=== PATIENT | female | born 2000 | race Caucasian/White ===

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

== ENCOUNTER → 2020-04-11 | Outpatient (CLI) | payer OTHER ==
[2020-04-11 08:53] VITALS: BP 113/60; PULSE 72; RESP 16; TEMP 97.9
--- NOTE | 2020-04-11 11:18 | P.HPOB ---
History of Present Illness H&P Date: 04/11/20 Chief Complaint: Pelvic pain for 2 months. This is a 20-year-old with an LMP of 03/30/2020. The patient is here to establish with this office. She currently is not using anything for control and is interested in getting . Her menses are regular every month. She states she started having some pelvic pains about 2 months ago. She rates the pain at 4-6 out of 10. She states at times it is not very bothersome but it seems to always be there. The pain tends to be a sore ache that can become sharp with sex or when she is working out. She states it is not related to her menstrual periods. She notices it on both sides and is not greater on either side. She denies vaginal discharge, urinary symptoms, fever or GI problems. Review of Systems The patient's weight has been stable over the last year. She denies respi ratory, cardiac, or G.I. problems. See HPI. Past Medical History Additional Past Medical History / Comment(s): Heart murmur(followed by Dr. Hawkins). 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 History of Any Multi-Drug Resistant Organisms: None Reported Past Surgical History: No Surgical Hx Reported Past Psychological History: Depression Smoking Status: Never smoker Past Alcohol Use History: None Reported Past Drug Use History: None Reported Additional History: The patient is single and has been with her boyfriend since 2018. The live together. This has been her only sexual partner. 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 - Past Family History Mother Family Medical History: No Reported History Father Family Medical History: No Reported History Medications and Allergies Home Medications Medication Instructions Recorded Confirmed Type Sertraline HCl [Zoloft] 100 mg PO HS 05/19/19 04/11/20 History Allergies Allergy/AdvReac Type Severity Reaction Status Date / Time No Known Allergies Allergy Verified 04/11/20 08:47 Exam Vital Signs Temp Pulse Resp BP Pulse Ox 04/11/20 08:50 97.9 F 72 16 113/60 99 Intake and Output 04/10/20 04/11/20 04/11/20 22:59 06:59 14:59 Other: Weight 66.678 kg Height 5 feet 2 inches, weight 147 pounds, BMI 26.9. This is a well-developed well-nourished white female who is alert and oriented times 3 in no acute distress. HEENT: Within normal limits. NECK: Supple without mass or thyromegaly. CHEST AND LUNGS: Clear to auscultation. HEART: Regular rate and rhythm. There is a grade 3/6 jesus-systolic murmur. BREASTS: Are without mass or discharge. AXILLARY EXAM: Negative for adenopathy. BACK: Negative for CVA tenderness. ABDOMEN: Softwithout palpable masses. There is mild bilateral low abdominal tenderness without rebound tenderness. PELVIC EXAM: Normal external genitalia. Cervix and vagina appear normal. There is no unusual discharge. There is mild cervical motion tenderness. There is no evidence of prolapse. The uterus is midposition, nongravid size and is mildly tender. There are no palpable adnexal masses. There is mild bilateral adnexal tenderness. RECTAL EXAM: Deferred. EXTREMITIES: Nontender. IMPRESSION: 1. 20-year-old female with a 2 month history of low abdominal and pelvic pain. Differential diagnosis will include mild pelvic inflammatory disease, ruptured ovarian cyst and less likely, non-gynecologic pain such as UTI or GI pain. 2. Currently not preventing and would like to become . PLAN: 1. Pap smear was deferred until age 21. 2. Self breast awareness was discussed with the patient. 3. Since I feel that this may represent a mild type of PID, she will be treated for PID as an outpatient. Ceftriaxone 250 mg's IM will be given today. Doxycycline 100 mg by mouth twice a day 14 days. 4. GC and chlamydia testing were obtained from the cervix. 5. Urine was obtained for urinalysis and culture with sensitivity. Urine hCG will also be done. 6. Pelvic ultrasound has been scheduled. 7. The patient was instructed to call or go to the emergency room if she is having worsening of pain, high fever or problems. 8. I have recommended that she take a daily multivitamin if she is not preventing since this may help to decrease the risk for certain defects. 9. She will return in one week for recheck.
[2020-04-11 15:19] LABS: Appearance,Urine Cloudy (Clear); Bacteria,Urine Rare /hpf; Bilirubin,Urine Negative (Negative); Blood,Urine Negative (Negative); Color,Urine Yellow; Glucose,Urine (UA) Negative (Negative); Ketones,Urine Negative (Negative); Leukocyte Esterase,Urine Negative (Negative); Mucus,Urine Many /hpf; Nitrite,Urine Negative (Negative); PH, Urine 5.5 (5.0-8.0); Protein,Urine Trace (Negative); RBC,Urine <1 /hpf (0-5); Specific Gravity,Urine 1.034 (1.001-1.035); Squamous Epithelial Cell,Urine 9 /hpf (0-4); Urobilinogen,Urine <2.0 mg/dL (<2.0); WBC,Urine 2 /hpf (0-5)
[2020-04-12 13:09] LABS: C. trachomatis,PCR Negative (Neg,Equiv); Chlamydia trachomatis Source Cervix; N. gonorrhoeae,PCR Negative (Neg,Equiv); Neisseria Source Cervix
--- NOTE | 2020-04-13 09:20 | P.PN ---
Progress Note - Text Progress Note Date: 04/13/20 OUTPATIENT FOLLOW-UP NOTE TEST(S)/RESULTS: Test results from 04/11/2020 include negative GC and negative chlamydia. Urinalysis and culture did not show infection. METHOD OF NOTIFICATION: A message with these results was left on the patient's voicemail. PATIENT COMMENTS: DIAGNOSIS: Suspected mild PID. Negative GC and chlamydia testing and no evidence of urinary tract infection. DISCUSSION: PLAN: The patient is scheduled for a pelvic ultrasound on 04/16/2020 and follow- up appointment with me on 04/18/2020. A message was also left to call if she is having any problems or if questions.
== END | disposition home or self-care (01) ==
LOC: WWCWWP 08:41
PROVIDERS: ATTEND Obstetrics & Gynecology
DX: N73.9 Female pelvic inflammatory disease, unspecified (principal); R10.2 Pelvic and perineal pain; Z11.3 Encounter for screening for infections with a predominantly sexual mode of transmission
CPT/HCPCS: 81001; 81025; 87086; 87491; 87591

== ENCOUNTER → 2020-04-11 | Outpatient (CLI) | payer OTHER ==
[~2020-04-11] MED LIST: cefTRIAXone 250 MG VIAL IM ONE
[2020-04-11 11:00] VITALS: BP 110/67; PULSE 67; RESP 16; TEMP 97.9
== END | disposition home or self-care (01) ==
LOC: PROCWHC3 10:32
PROVIDERS: ATTEND Obstetrics & Gynecology
DX: R10.2 Pelvic and perineal pain (principal)
CPT/HCPCS: 96372; J0696

== ENCOUNTER → 2020-04-16 | Outpatient (CLI) | payer OTHER ==
--- NOTE | 2020-04-16 08:51 | US ---
EXAMINATION TYPE: US pelvic complete DATE OF EXAM: 04/16/2020 COMPARISON: NONE CLINICAL HISTORY: 20-year-old female R10.2 Pelvic Pain. TECHNIQUE: Transabdominal (TA). FINDINGS: EXAM MEASUREMENTS: Uterus: 7.8 x 3.3 x 4.6 cm Endometrial Stripe: .7 cm Right Ovary: 3.6 x 1.9 x 2.3 cm Left Ovary: 3.3 x 1.3 x 2.2 cm 1. Uterus: Anteverted wnl 2. Endometrium: wnl 3. Right Ovary: wnl 4. Left Ovary: wnl 5. Bilateral Adnexa: wnl 6. Posterior cul-de-sac: wnl IMPRESSION: Unremarkable transabdominal sonographic examination of the pelvis.
== END | disposition home or self-care (01) ==
LOC: RADUSWWP 08:25
PROVIDERS: ATTEND Obstetrics & Gynecology
DX: R10.2 Pelvic and perineal pain (principal)
CPT/HCPCS: 76856

== ENCOUNTER → 2020-04-18 | Outpatient (CLI) | payer OTHER ==
[2020-04-18 09:06] VITALS: BP 103/72; PULSE 69; RESP 16; TEMP 98.6
--- NOTE | 2020-04-18 09:39 | P.PN ---
Progress Note - Text Progress Note Date: 04/18/20 Chief Complaint: Follow-up for suspected mild PID. HPI: This is a 20 year old . On 04/11/2028, the patient presented with some low abdominal and pelvic pain which was bilateral. On examination she had cervical motion tenderness with bilateral adnexal tenderness. The patient was treated for suspected mild PID with ceftriaxone and doxycycline. GC and chlamydia testing ended up being negative. Urine hCG was negative and urine did not show infection. The pain has gotten slightly better, but has not gone away completely. She now has slight pain on the left side only. Pelvic ultrasound done on 04/16/2020 was unremarkable. ROS: She denies fever, respiratory, cardiac, or GI problems. Bowel movements are regular and normal. PE: Blood pressure: 103/72, Height: 5 foot 1 inch, Weight: 149 pounds, Temperature: 98.6, Pulse: 69. 98% pulse oximeter. This is a well developed, well nourished, white female who is alert and orientedx3, in no acute distress. Abdomen: Soft, with minimal left lower quadrant tenderness without rebound tenderness. The rest of the abdomen is nontender. The abdomen is nondistended. There are no palpable masses. Pelvic exam: Normal external genitalia. There is no cervical motion tenderness. Uterus is midposition and nongravid size and nontender. There is no right adnexal tenderness or mass. There is mild left adnexal tenderness without palpable mass. Impression: 1. 20-year-old female who was treated for suspected mild PID 1 week ago with improvement of pain but not complete resolution. Differential diagnosis will include resolving ruptured ovarian cyst, improving pelvic inflammatory disease, and non-gynecologic pain. 2. The patient is not interested in control and is interested in attempting in the near future. Plan: 1. No further treatment at this time. The patient will continue to abstain from any sexual intercourse until the pain has resolved. The patient was instructed to call if pain is resolved over the next 1-2 weeks or if worsening of pain. She was also instructed to call if fever or problems. If pain is not improving or worsening, consider referral for laparoscopic examination. 2. She has started a daily multivitamin. She'll keep a menstrual calendar. She will call if or problems. 3. She was advised to return in one year for her annual well woman exam and as needed. Time spent with the patient: 15 minutes
== END | disposition home or self-care (01) ==
LOC: WWCWWP 08:55
PROVIDERS: ATTEND Obstetrics & Gynecology
DX: Z53.9 Procedure and treatment not carried out, unspecified reason (principal)

== ENCOUNTER → 2020-06-25 | Outpatient (CLI) | payer OTHER | END | disposition home or self-care (01) | LOC: LABWHC1 14:17 | PROVIDERS: ATTEND Emergency Medicine | DX: Z20.828 Contact with and (suspected) exposure to other viral communicable diseases (principal) | CPT/HCPCS: U0003; C9803 ==

== ENCOUNTER 2023-07-20 12:11 | Emergency (ER) | payer OTHER ==
--- NOTE | 2023-07-20 13:08 | ED ---
Female Urogenital HPI - General Chief complaint: Vaginal Bleeding Stated complaint: Vaginal bleeding, 5 wks Time Seen by Provider: 07/20/23 12:19 Source: patient, RN notes reviewed Mode of arrival: ambulatory Limitations: no limitations - History of Present Illness Initial comments: 23-year-old female presents emergency department to complaint of abdominal pain, vaginal bleeding and . Patient states that she is A1 currently 6 weeks . Patient confirmed last week but positive test but ultrasound NEGATIVE FOR ANY FINDINGS. PATIENT STATES SHE STARTED HAVING PAIN, CRAMPING BUT ALSO DEVELOPED BLEEDING TODAY. Patient is 80 positive blood type patient denies any fevers or chills no dysuria no other complaints. - Related Data Home Medications Medication Instructions Recorded Confirmed Sertraline HCl [Zoloft] 100 mg PO HS 05/19/19 04/18/20 Previous Rx's Medication Instructions Recorded Doxycycline [Vibramycin] 100 mg PO BID 14 Days #28 capsule 04/11/20 Allergies Allergy/AdvReac Type Severity Reaction Status Date / Time No Known Allergies Allergy Verified 07/20/23 12:14 Review of Systems ROS Statement: Those systems with pertinent positive or pertinent negative responses have been documented in the HPI. ROS Other: All systems not noted in ROS Statement are negative. Past Medical History Past Medical History: No Reported History History of Any Multi-Drug Resistant Organisms: None Reported Past Surgical History: No Surgical Hx Reported Past Psychological History: Depression Smoking Status: Never smoker Past Alcohol Use History: None Reported Past Drug Use History: None Reported General Exam Limitations: no limitations General appearance: alert, in no apparent distress Head exam: Present: atraumatic, normocephalic, normal inspection Eye exam: Present: normal appearance, PERRL, EOMI. Absent: scleral icterus, conjunctival injection, periorbital swelling Respiratory exam: Present: normal lung sounds bilaterally. Absent: respiratory distress, wheezes, rales, rhonchi, stridor Cardiovascular Exam: Present: regular rate, normal rhythm, normal heart sounds. Absent: systolic murmur, diastolic murmur, rubs, gallop, clicks GI/Abdominal exam: Present: soft, tenderness, normal bowel sounds. Absent: distended, guarding, rebound, rigid Back exam: Absent: CVA tenderness (R), CVA tenderness (L) Course Vital Signs 07/20/23 12:12 Temperature 98.3 F Pulse Rate 76 Respiratory 16 Rate Blood Pressure 156/78 O2 Sat by Pulse 100 Oximetry Medical Decision Making - Medical Decision Making Was pt. sent in by a medical professional or institution (ORACIO Blair, DENIAL RESOLUTION SPECIALIST, urgent care, hospital, or fci...) When possible be specific @ -No Did you speak to anyone other than the patient for history (EMS, parent, family, police, friend...)? What history was obtained from this source @ -No Did you review nursing and triage notes (agree or disagree)? Why? @ -I reviewed and agree with nursing and triage notes Were old charts reviewed (outside hosp., previous admission, EMS record, old EKG, old radiological studies, urgent care reports/EKG's, fci records)? Report findings @ -Reviewed prior laboratory studies Differential Diagnosis (chest pain, altered mental status, abdominal pain women, abdominal pain men, vaginal bleeding, weakness, fever, dyspnea, syncope, headache, dizziness, GI bleed, back pain, seizure, CVA, palpatations, mental health, musculoskeletal)? @ -nDifferential Vaginal Bleeding: Spontaneous , threatened , molar , ectopic , bloody show, incompetent cervix, abruptioplacenta, placenta previa, uterine rupture, dysfunctional uterine bleeding, hemorrhage, uterine fibroids, this is not meant to be an all-inclusive list.ble EKG interpreted by me (3pts min.). @ -None X-rays interpreted by me (1pt min.). @ -None done CT interpreted by me (1pt min.). @ -None done U/S interpreted by me (1pt. min.). @ -[Ultrasound OB transvaginal showing no intrauterine What testing was considered but not performed or refused? (CT, X-rays, U/S, labs)? Why? @ -None What meds were considered but not given or refused? Why? @ -None Did you discuss the management of the patient with other professionals (pr ofessionals i.e. ORACIO Blair, DENIAL RESOLUTION SPECIALIST, lab, RT, psych nurse, 7th grade social studies teacher, maintenance carpenter, teacher, maritime officer, case managers)? Give summary @ -No Was smoking cessation discussed for >3mins.? @ -No Was critical care preformed (if so, how long)? @ -No Were there social determinants of health that impacted care today? How? (Homelessness, low income, unemployed, alcoholism, drug addiction, transportation, low edu. Level, literacy, decrease access to med. care, [place] [facility], rehab)? @ -No Was there de-escalation of care discussed even if they declined (Discuss DNR or withdrawal of care, Hospice)? DNR status @ -No What co-morbidities impacted this encounter? (DM, HTN, Smoking, COPD, CAD, Cancer, CVA, ARF, Chemo, Hep., AIDS, mental health diagnosis, sleep apnea, morbid obesity)? @ -None Was patient admitted / discharged? Hospital course, mention meds given and route, prescriptions, significant lab abnormalities, going to OR and other pertinent info. @ -Discharge patient's hCG is low at 119 with vaginal bleeding. Patient's AB positive blood type and does not require RhoGAM. Patient will have repeat hCG in 2 days to confirm miscarriage. Undiagnosed new problem with uncertain prognosis? @ -No Drug Therapy requiring intensive monitoring for toxicity (Heparin, Nitro, Insulin, Cardizem)? @ -No Were any procedures done? @ -No Diagnosis/symptom? @ -[Threatened miscarriage Acute, or Chronic, or Acute on Chronic? @ -Acute Uncomplicated (without systemic symptoms) or Complicated (systemic symptoms)? @ -Uncomplicated Side effects of treatment? @ -No Exacerbation, Progression, or Severe Exacerbation? @ -No Poses a threat to life or bodily function? How? (Chest pain, USA, NM, pneumonia, PE, COPD, DKA, ARF, appy, cholecystitis, CVA, Diverticulitis, Homicidal, Suicidal, threat to staff... and all critical care pts) @ -No - Lab Data Lab Results 07/20/23 07/20/23 Range/Units 12:14 12:14 HCG, Quant 119.5 mIU/mL Urine Color Yellow Urine Appearance Clear (Clear) Urine pH 7.5 (5.0-8.0) Ur Specific [place] 1.012 (1.001-1.035) Urine Protein Negative (Negative) Urine Glucose (UA) Negative (Negative) Urine Ketones Negative (Negative) Urine Blood Large H (Negative) Urine Nitrite Negative (Negative) Urine Bilirubin Negative (Negative) Urine Urobilinogen <2.0 (<2.0) mg/dL Ur Leukocyte Esterase Negative (Negative) Urine RBC >182 H (0-5) /hpf Urine WBC 6 H (0-5) /hpf Ur Squamous Epith Cells 2 (0-4) /hpf Disposition Clinical Impression: Threatened miscarriage Disposition: HOME SELF-CARE Condition: Stable Instructions (If sedation given, give patient instructions): Threatened Miscarriage (ED) Additional Instructions: Please return to the Emergency Department if symptoms worsen or any other concerns. Is patient prescribed a controlled substance at d/c from ED?: No Referrals: None,Stated [REFERRING] - 1-2 days Time of Disposition: 14:15
[2023-07-20 13:16] LABS: Appearance,Urine Clear (Clear); Bilirubin,Urine Negative (Negative); Blood,Urine Large (Negative); Color,Urine Yellow; Glucose,Urine (UA) Negative (Negative); Ketones,Urine Negative (Negative); Leukocyte Esterase,Urine Negative (Negative); Nitrite,Urine Negative (Negative); PH, Urine 7.5 (5.0-8.0); Protein,Urine Negative (Negative); RBC,Urine >182 /hpf (0-5); Specific Gravity,Urine 1.012 (1.001-1.035); Squamous Epithelial Cell,Urine 2 /hpf (0-4); Urobilinogen,Urine <2.0 mg/dL (<2.0); WBC,Urine 6 /hpf (0-5)
--- NOTE | 2023-07-20 14:26 | US ---
EXAMINATION TYPE: Transabdominal DATE OF EXAM: 07/20/2023 1:46 PM COMPARISON: NONE CLINICAL INDICATION: Female, 23 years old with history of pain, possible ectopic; positive tests, cramping and bleeding began last night scanned at [facility], no IUP visualized, thickened endo EXAM PERFORMED: Transvaginal (TV) and Transabdominal (TA) EXAM MEASUREMENTS: GESTATIONAL AGE / DATING Physician Established: Not yet established Dates by LMP: (8 weeks/0 days) EDC: 02/29/24 Dates by First Scan: outside scan, unable to date Dates by Current Scan for: No IUP seen at this time MATERNAL ANATOMY Uterus: 8.1x3.7x4.5cm Right Ovary: 2.5x1.5x1.7cm Left Ovary: 2.4x1.2x1.7cm Post CDS / Adnexa: wnl Presence of free fluid: n/a Presence of corpus luteal cyst: n/a Presence of subchorionic bleed: n/a GESTATION / SURVEY CRL: no IUP visualized MSD: no IUP visualized Yolk Sac (normal less than 6mm): no IUP visualized Heart Rate: no IUP visualized IUP: No IUP seen at this time Nuchal Translucency 10-14wks (normal less than 3mm): no IUP visualized Date of LMP: 05/25/23 Beta HcG (if available): Not available at this time no IUP seen at this time, complex fluid noted within the endometrium at the lower uterine segment. He terogenous vascular area in endometrium seen near fundus of uterus IMPRESSION: 1. No intrauterine is identified however complex fluid seen within the lower uterine endome trial segment. This may reflect spontaneous in progress. Normal early IUP is not excluded no r is ectopic however. Correlate with serial beta hCG and/or ultrasound.
[2023-07-20 15:21] VITALS: BP 109/51; PULSE 78; RESP 18; TEMP 98.2
== END 2023-07-20 14:53 | disposition home or self-care (01) ==
LOC: EC 12:11
DX: O20.0 Threatened abortion (principal); O99.341 Other mental disorders complicating pregnancy, first trimester; F32.A Depression, unspecified; Z79.899 Other long term (current) drug therapy; Z3A.01 Less than 8 weeks gestation of pregnancy
CPT/HCPCS: 36415; 76801; 76817; 81001; 84702; 99284

== ENCOUNTER → 2023-07-22 | Outpatient (CLI) | payer SELFPAY | END | disposition home or self-care (01) | LOC: LABWHC1 12:40 | PROVIDERS: ATTEND Physician Assistant | DX: Z00.00 Encounter for general adult medical examination without abnormal findings (principal); O20.0 Threatened abortion; Z3A.00 Weeks of gestation of pregnancy not specified | CPT/HCPCS: 36415; 84702 ==

== ENCOUNTER → 2024-03-07 | Outpatient (CLI) | payer BC ==
--- NOTE | 2024-03-07 10:21 | USB ---
Reason for Exam: Clinical finding. Technique: Method: Targeted. Findings: The axilla of the left breast and the retroareolar of the left breast were scanned. Within the subcutaneous tissue there is a 1.8 x 1.8 x 0.6 cm hypoechoic area. No well-defined wall is evident. Findings could be compatible with resolving abscess. This area is in the anterior breast near the lateral nipple. Patient reports has been resolving over the last month with antibiotics. Continued follow-up to complete resolution is recommended. Consider follow-up ultrasound in approximately one month there is continued improvement. Earlier diagnostic imaging can be performed if there is a change in the clinical course. Note is made of a couple of left axillary lymph nodes with thickened cortex which can be reactive due to the patient's suspected infection. Overall Assessment: Probably benign, BI-RAD 3 Management: Diagnostic Breast Ultrasound of the left breast in 1 month. A clinical breast exam by your physician is recommended on an annual basis and results should be correlated with mammographic findings. This exam should not preclude additional follow-up of suspicious palpable abnormalities. Results were given to the patient verbally at the time of exam. Electronically signed and approved by: Rohan Mccain D.O. Radiologis
== END | disposition home or self-care (01) ==
LOC: RADUSWWP 08:39
PROVIDERS: ATTEND Family Medicine
DX: N61.22 Granulomatous mastitis, left breast (principal); N63.20 Unspecified lump in the left breast, unspecified quadrant

== ENCOUNTER 2024-03-30 20:46 | Emergency (ER) | payer BC ==
[2024-03-30 20:51] VITALS: BP 117/76; PULSE 97; RESP 18; TEMP 98.1
--- NOTE | 2024-03-30 21:53 | ED ---
ENT HPI - General Chief complaint: ENT Stated complaint: SOB Time Seen by Provider: 03/30/24 21:52 Source: patient, RN notes reviewed Mode of arrival: ambulatory Limitations: no limitations - History of Present Illness Initial comments: 24-year-old female presenting with chief complaint of sore throat x 2 days. She states she has been having subjective fevers at home. She is able to swallow. Denies cough or shortness of breath. - Related Data Home Medications Medication Instructions Recorded Confirmed Sertraline HCl [Zoloft] 100 mg PO HS 05/19/19 04/18/20 Previous Rx's Medication Instructions Recorded Doxycycline [Vibramycin] 100 mg PO BID 14 Days #28 capsule 04/11/20 Amoxicillin 500 mg PO Q12HR 10 Days #20 capsule 03/30/24 Allergies Allergy/AdvReac Type Severity Reaction Status Date / Time No Known Allergies Allergy Verified 03/30/24 20:51 Review of Systems ROS Statement: Those systems with pertinent positive or pertinent negative responses have been documented in the HPI. ROS Other: All systems not noted in ROS Statement are negative. Past Medical History Past Medical History: No Reported History History of Any Multi-Drug Resistant Organisms: None Reported Past Surgical History: No Surgical Hx Reported Past Psychological History: Depression Smoking Status: Never smoker Past Alcohol Use History: None Reported Past Drug Use History: None Reported General Exam Limitations: no limitations General appearance: alert, in no apparent distress Head exam: Present: atraumatic, normocephalic, normal inspection Eye exam: Present: normal appearance, PERRL, EOMI. Absent: scleral icterus, conjunctival injection, periorbital swelling ENT exam: Present: mucous membranes moist. Absent: normal oropharynx (Tonsils are 2+ with bilateral exudate. Uvula midline) Neck exam: Present: normal inspection. Absent: tenderness, meningismus, lymphadenopathy Respiratory exam: Present: normal lung sounds bilaterally. Absent: respiratory distress, wheezes, rales, rhonchi, stridor Cardiovascular Exam: Present: regular rate, normal rhythm, normal heart sounds. Absent: systolic murmur, diastolic murmur, rubs, gallop, clicks Neurological exam: Present: alert, oriented X3 Psychiatric exam: Present: normal affect, normal mood Skin exam: Present: warm, dry, intact, normal color. Absent: rash Course Vital Signs 03/30/24 20:48 Temperature 98.1 F Pulse Rate 97 Respiratory 18 Rate Blood Pressure 117/76 O2 Sat by Pulse 97 Oximetry Medical Decision Making - Medical Decision Making Was pt. sent in by a medical professional or institution (ORACIO Blair, SUSTAINABILITY COORDINATOR, urgent care, hospital, or long-term...) When possible be specific @ -No Did you speak to anyone other than the patient for history (EMS, parent, family, police, friend...)? What history was obtained from this source @ -No Did you review nursing and triage notes (agree or disagree)? Why? @ -I reviewed and agree with nursing and triage notes Were old charts reviewed (outside hosp., previous admission, EMS record, old EKG, old radiological studies, urgent care reports/EKG's, long-term records)? Report findings @ -No old charts were reviewed Differential Diagnosis (chest pain, altered mental status, abdominal pain women, abdominal pain men, vaginal bleeding, weakness, fever, dyspnea, syncope, headache, dizziness, GI bleed, back pain, seizure, CVA, palpatations, mental health, musculoskeletal)? @ -Strep pharyngitis, COVID, influenza, RSV, pneumonia, retropharyngeal abscess, peritonsillar abscess EKG interpreted by me (3pts min.). @ -None X-rays interpreted by me (1pt min.). @ -None done CT interpreted by me (1pt min.). @ -None done U/S interpreted by me (1pt. min.). @ -None done What testing was considered but not performed or refused? (CT, X-rays, U/S, labs)? Why? @ -None What meds were considered but not given or refused? Why? @ -None Did you discuss the management of the patient with other professionals (professionals i.e. ORACIO Blair, SUSTAINABILITY COORDINATOR, lab, RT, psych nurse, health and social care teacher, clarifying plant operator, teacher, environmental compliance officer, telehealth case manager)? Give summary @ -No Was smoking cessation discussed for >3mins.? @ -No Was critical care preformed (if so, how long)? @ -No Were there social determinants of health that impacted care today? How? (Homelessness, low income, unemployed, alcoholism, drug addiction, transportation, low edu. Level, literacy, decrease access to med. care, penitentiary, rehab)? @ -No Was there de-escalation of care discussed even if they declined (Discuss DNR or withdrawal of care, Hospice)? DNR status @ -No What co-morbidities impacted this encounter? (DM, HTN, Smoking, COPD, CAD, Cancer, CVA, ARF, Chemo, Hep., AIDS, mental health diagnosis, sleep apnea, morbid obesity)? @ -None Was patient admitted / discharged? Hospital course, mention meds given and route, prescriptions, significant lab abnormalities, going to OR and other pertinent info. @ -Patient was discharged. Patient was seen and evaluated for sore throat x 2 days. Patient is able to swallow. No red flag symptoms. Group A strep PCR is positive. Flu, COVID, RSV is negative. Patient given first dose of amoxicillin in ER. Patient discharged with amoxicillin twice daily for 10 days. Supportive care discussed. Case discussed with my ED attending Dr. Arciniega. Patient discharged in stable condition. Undiagnosed new problem with uncertain prognosis? @ -No Drug Therapy requiring intensive monitoring for toxicity (Heparin, Nitro, Insulin, Cardizem)? @ -No Were any procedures done? @ -No Diagnosis/symptom? @ -Strep pharyngitis Acute, or Chronic, or Acute on Chronic? @ -Acute Uncomplicated (without systemic symptoms) or Complicated (systemic symptoms)? @ -Uncomplicated Side effects of treatment? @ -No Exacerbation, Progression, or Severe Exacerbation? @ -No Poses a threat to life or bodily function? How? (Chest pain, USA, ND, pneumonia, PE, COPD, DKA, ARF, appy, cholecystitis, CVA, Diverticulitis, Homicidal, Suicidal, threat to staff... and all critical care pts) @ -No - Lab Data Lab Results 03/30/24 03/30/24 Range/Units 20:52 20:52 Influenza Type A (PCR) Not Detected (Not Detectd) Influenza Type B (PCR) Not Detected (Not Detectd) RSV (PCR) Not Detected (Not Detectd) SARS-CoV-2 (PCR) Not Detected (Not Detectd) Group A Strep (PCR) DETECTED A (Not Detectd) Disposition Clinical Impression: Strep pharyngitis Disposition: HOME SELF-CARE Condition: Stable Instructions (If sedation given, give patient instructions): Strep Throat (ED) Additional Instructions: Please take full course of amoxicillin. Take ibuprofen/Tylenol for pain/fever. Drink plenty of warm fluids. Dispose of toothbrush at end of antibiotic course. Please return to the Emergency Department if symptoms worsen or any other concerns. Prescriptions: Amoxicillin 500 mg PO Q12HR 10 Days #20 capsule Is patient prescribed a controlled substance at d/c from ED?: No Referrals: Damien Nielsen Jr, [Primary Care Provider] - 1-2 days Time of Disposition: 22:23
[2024-03-30] MEDS: AMOXICILLIN 500 MG CAP PO STA (21:59)
== END 2024-03-30 23:29 | disposition home or self-care (01) ==
LOC: EC 20:46
DX: J02.0 Streptococcal pharyngitis (principal); B95.0 Streptococcus, group A, as the cause of diseases classified elsewhere
CPT/HCPCS: 87636; 87651; 99284

== ENCOUNTER → 2024-07-12 | Outpatient (CLI) | payer BC ==
--- NOTE | 2024-07-12 16:41 | US ---
EXAMINATION TYPE: Transabdominal DATE OF EXAM: 07/12/2024 3:31 PM COMPARISON: NONE CLINICAL INDICATION: Female, 24 years old with history of [id number] HIGH RISK ANTEPARTUM; Confi dates, high risk TECHNIQUE: Transabdominal (TA) with grayscale and color Doppler imaging including first trimester pre gnancy. FINDINGS: EXAM MEASUREMENTS: GESTATIONAL AGE / DATING Physician Established: (10 weeks/1 days) EDC: 02/06/2025 Dates by LMP: (10 weeks/1 days) EDC: 02/06/2025 Dates by First Scan: No previous this is first scan Dates by Current Scan for: (10 weeks/5 days) EDC: 02/02/2025 MATERNAL ANATOMY Uterus: 11.5 x 6.4 x 7.4 cm Possible fibroid anterior uterine body= 4.1 x 3.3 x 4.1 cm Right Ovary: 3.1 x 2.1 x 2.3 cm Left Ovary: 3.8 x 1.9 x 2.7 cm Post CDS / Adnexa: wnl Presence of free fluid: No Presence of subchorionic bleed: No GESTATION / SURVEY CRL: 3.8 cm (10 weeks/5 days) Gestational morphology: Normal Heart Rate: 160 bpm Rhythm: Normal IUP: Viable IUP Single, viable IUP, possible uterine fibroid, otherwise no other abnormality visualized at this bong e IMPRESSION: Single live intrauterine with calculated ultrasound age of 10 weeks 5 days by crown rump le ngth. [facility], , 07/12/2024 4:38 PM
== END | disposition home or self-care (01) ==
LOC: RADUSWWP 15:09
PROVIDERS: ATTEND Obstetrics & Gynecology Maternal & Fetal Medicine
DX: O09.91 Supervision of high risk pregnancy, unspecified, first trimester (principal); Z3A.10 10 weeks gestation of pregnancy
CPT/HCPCS: 76801

== ENCOUNTER 2024-08-12 08:38 | Emergency (ER) | payer BC ==
[2024-08-12 08:49] VITALS: RESP 18
--- NOTE | 2024-08-12 09:19 | ED ---
General Adult HPI - General Chief complaint: Chest Pain Stated complaint: Chest Pain/13wks preg Time Seen by Provider: 08/12/24 08:50 Source: patient, RN notes reviewed, old records reviewed Mode of arrival: ambulatory Limitations: no limitations - History of Present Illness Initial comments: 24-year-old female who is currently 15 weeks , G2, P1 presenting with upper chest discomfort. 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 Worse with movement. No fever. No cough. No lower extremity pain or swelling. Patient has history of aortic stenosis and is awaiting cardiothoracic surgery after the delivery of this current . She states she was diagnosed with this as an infant. Patient denies lower abdominal pain or vaginal bleeding. - Related Data Home Medications Medication Instructions Recorded Confirmed Sertraline HCl [Zoloft] 100 mg PO HS 05/19/19 04/18/20 Previous Rx's Medication Instructions Recorded Doxycycline [Vibramycin] 100 mg PO BID 14 Days #28 capsule 04/11/20 Amoxicillin 500 mg PO Q12HR 10 Days #20 capsule 03/30/24 Allergies Allergy/AdvReac Type Severity Reaction Status Date / Time No Known Allergies Allergy Verified 08/12/24 08:47 Review of Systems ROS Statement: Those systems with pertinent positive or pertinent negative responses have been documented in the HPI. ROS Other: All systems not noted in ROS Statement are negative. Past Medical History Past Medical History: No Reported History Additional Past Medical History / Comment(s): aortic stenosis History of Any Multi-Drug Resistant Organisms: None Reported Past Surgical History: No Surgical Hx Reported Past Psychological History: Depression Smoking Status: Never smoker Past Alcohol Use History: None Reported Past Drug Use History: None Reported General Exam Limitations: no limitations General appearance: alert, in no apparent distress Head exam: Present: atraumatic, normocephalic Eye exam: Present: normal appearance, PERRL ENT exam: Present: normal exam Neck exam: Present: normal inspection. Absent: tenderness, meningismus Respiratory exam: Present: normal lung sounds bilaterally, chest wall tenderness (Tenderness to palpation over the upper chest wall). Absent: respiratory distress, wheezes Cardiovascular Exam: Present: regular rate, normal rhythm, systolic murmur GI/Abdominal exam: Present: soft. Absent: distended, tenderness, guarding Extremities exam: Present: normal inspection, normal capillary refill. Absent: pedal edema, calf tenderness Neurological exam: Present: alert, oriented X3 Psychiatric exam: Present: normal affect, normal mood Course Vital Signs 08/12/24 08/12/24 08:47 10:49 Temperature 98.1 F 98 F Pulse Rate 74 66 Respiratory 18 18 Rate Blood Pressure 130/77 116/55 O2 Sat by Pulse 100 99 Oximetry Medical Decision Making - Medical Decision Making Was pt. sent in by a medical professional or institution (, ORACIO, CELL INSPECTOR, urgent care, hospital, or detention...) When possible be specific @ -No Did you speak to anyone other than the patient for history (EMS, parent, family, police, friend...)? What history was obtained from this source @ -No Did you review nursing and triage notes (agree or disagree)? Why? @ -I reviewed and agree with nursing and triage notes Were old charts reviewed (outside hosp., previous admission, EMS record, old EKG, old radiological studies, urgent care reports/EKG's, detention records)? Report findings @ -No old charts were reviewed Differential Chest Pain: Stable Angina, Unstable Angina, STEMI, NSTEMI Aortic Dissection, Pneumothorax, Musculoskeletal, Esophageal Spasm GERD, Cholecystitis, Pancreatitis, Zoster, this is not meant to be an all-inclusive list. EKG interpreted by me (3pts min.). @Sinus rhythm with right ventricular conduction delay, rate of 83, MI interval 136, QRS duration 97, QTc [address] segment elevation. X-rays interpreted by me (1pt min.). @ -None done CT interpreted by me (1pt min.). @ -None done U/S interpreted by me (1pt. min.). @ -None done What testing was considered but not performed or refused? (CT, X-rays, U/S, labs)? Why? @ -None What meds were considered but not given or refused? Why? @ -None Did you discuss the management of the patient with other professionals (professionals i.e. ORACIO Blair, CELL INSPECTOR, lab, RT, psych nurse, social and human services assistant, citrix lead, teacher, mail officer, director case management)? Give summary @ -Case discussed at the onset of care and at the time of disposition with the patient's physician at [facility] Dr. Berman Was smoking cessation discussed for >3mins.? @ -No Was critical care preformed (if so, how long)? @ -No Were there social determinants of health that impacted care today? How? (Homelessness, low income, unemployed, alcoholism, drug addiction, transportation, low edu. Level, literacy, decrease access to med. care, group home, rehab)? @ -No Was there de-escalation of care discussed even if they declined (Discuss DNR or withdrawal of care, Hospice)? DNR status @ -No What co-morbidities impacted this encounter? (DM, HTN, Smoking, COPD, CAD, Cancer, CVA, ARF, Chemo, Hep., AIDS, mental health diagnosis, sleep apnea, morbid obesity)? @ -[History of aortic stenosis, current at 15 weeks. Was patient admitted / discharged? Hospital course, mention meds given and route, prescriptions, significant lab abnormalities, going to OR and other pertinent info. @ 24-year-old female history of aortic stenosis, and current at 15 weeks presenting with upper chest discomfort. No significant dyspnea. Lungs are clear to auscultation. Patient has pronounced systolic murmur. Vital signs are stable. She is in sinus rhythm at a rate around 80. I discussed the care with the patient's performance makeup artist or cardiothoracic surgeon at [facility] Dr. Berman, who is familiar with the patient. She did recommend basic laboratory testing an d [facility]. These tests were obtained and were unremarkable. Patient's pain is atypical and more consistent with a musculoskeletal chest pain. Patient's felt to be stable for discharge at this time and will follow-up with her physician at [facility] in 2 weeks. Strict return parameters are discussed. Undiagnosed new problem with uncertain prognosis? @ -No Drug Therapy requiring intensive monitoring for toxicity (Heparin, Nitro, Insulin, Cardizem)? @ -No Were any procedures done? @ -No Diagnosis/symptom? @ -Atypical chest discomfort Acute, or Chronic, or Acute on Chronic? @ -Acute Uncomplicated (without systemic symptoms) or Complicated (systemic symptoms)? @ -Default Side effects of treatment? @ -No Exacerbation, Progression, or Severe Exacerbation? @ -No Poses a threat to life or bodily function? How? (Chest pain, USA, ID, pneumonia, PE, COPD, DKA, ARF, appy, cholecystitis, CVA, Diverticulitis, Homicidal, Suicidal, threat to staff... and all critical care pts) @ -Low risk at this time - Lab Data Result diagrams: 08/12/24 10:18 08/12/24 10:18 Lab Results 08/12/24 08/12/24 Range/Units 10:18 10:18 WBC 10.4 (3.8-10.6) k/uL RBC 4.41 (3.80-5.40) m/uL Hgb 13.4 (11.4-16.0) gm/dL Hct 40.2 (34.0-46.0) % MCV 91.2 (80.0-100.0) fL MCH 30.4 (25.0-35.0) pg MCHC 33.3 (31.0-37.0) g/dL RDW 12.8 (11.5-15.5) % Plt Count 272 (150-450) k/uL MPV 6.8 Neutrophils % 75 % Lymphocytes % 19 % Monocytes % 4 % Eosinophils % 1 % Basophils % 0 % Neutrophils # 7.8 H (1.3-7.7) k/uL Lymphocytes # 2.0 (1.0-4.8) k/uL Monocytes # 0.4 (0-1.0) k/uL Eosinophils # 0.1 (0-0.7) k/uL Basophils # 0.0 (0-0.2) k/uL Sodium 135 L (137-145) mmol/L Potassium 3.9 (3.5-5.1) mmol/L Chloride 106 (98-107) mmol/L Carbon Dioxide 23 (22-30) mmol/L Anion Gap 6 mmol/L BUN 7 (7-17) mg/dL Creatinine 0.59 (0.52-1.04) mg/dL Est GFR (CKD-EPI)AfAm >90 (>60 ml/min/1.73 sqM) Est GFR (CKD-EPI)NonAf >90 (>60 ml/min/1.73 sqM) Glucose 83 (74-99) mg/dL Calcium 9.6 (8.4-10.2) mg/dL Total Bilirubin 0.4 (0.2-1.3) mg/dL AST 19 (14-36) U/L ALT 15 (4-34) U/L Alkaline Phosphatase 51 (38-126) U/L NT-Pro-B Natriuret Pep 41 pg/mL Total Protein 6.9 (6.3-8.2) g/dL Albumin 4.0 (3.5-5.0) g/dL Disposition Clinical Impression: Atypical chest pain, , Aortic stenosis Disposition: HOME SELF-CARE Condition: Good Instructions (If sedation given, give patient instructions): Chest Pain (ED) Additional Instructions: Please follow-up with Dr. Berman, in 2 weeks as planned. Please return to the emergency department with any worsening or changing symptoms. Is patient prescribed a controlled substance at d/c from ED?: No Referrals: Damien Nielsen Jr, [Primary Care Provider] - 1-2 days Time of Disposition: 11:08
[2024-08-12 10:35] LABS: Basophils % (A) 0 %; Eosinophils # (A) 0.1 k/uL (0-0.7); Eosinophils % (A) 1 %; HCT 40.2 % (34.0-46.0); HGB 13.4 gm/dL (11.4-16.0); Lymphocytes % (A) 19 %; MCH 30.4 pg (25.0-35.0); MCHC 33.3 g/dL (31.0-37.0); MCV 91.2 fL (80.0-100.0); Mean Platelet Volume 6.8; Monocytes # (A) 0.4 k/uL (0-1.0); Monocytes % (A) 4 %; Neutrophils # (A) 7.8 k/uL (1.3-7.7); Neutrophils % (A) 75 %; Platelet Count 272 k/uL (150-450); RBC 4.41 m/uL (3.80-5.40); RDW 12.8 % (11.5-15.5); WBC 10.4 k/uL (3.8-10.6)
[2024-08-12 10:43] LABS: ALT 15 U/L (4-34); AST 19 U/L (14-36); African American GFR (CKD) >90 (>60 ml/min/1.73 sqM); Alkaline Phosphatase 51 U/L (38-126); Anion Gap 6 mmol/L; Blood Urea Nitrogen 7 mg/dL (7-17); Calcium 9.6 mg/dL (8.4-10.2); Carbon Dioxide 23 mmol/L (22-30); Chloride 106 mmol/L (98-107); Glucose 83 mg/dL (74-99); Non-African American GFR(CKD) >90 (>60 ml/min/1.73 sqM); Potassium 3.9 mmol/L (3.5-5.1); Sodium 135 mmol/L (137-145); Total Bilirubin 0.4 mg/dL (0.2-1.3); Total Protein 6.9 g/dL (6.3-8.2)
[2024-08-12 10:51] LABS: NT-Pro-B-Type Natriuretic Pept 41 pg/mL
[2024-08-12 10:57] VITALS: BP 116/55; PULSE 66; TEMP 98
== END 2024-08-12 11:15 | disposition home or self-care (01) ==
LOC: EC 08:38
DX: O26.892 Other specified pregnancy related conditions, second trimester (principal); R07.89 Other chest pain; I35.0 Nonrheumatic aortic (valve) stenosis; Z3A.15 15 weeks gestation of pregnancy
CPT/HCPCS: 36415; 80053; 83880; 85025; 99285

== ENCOUNTER 2024-08-22 06:15 | Day surgery (SDC) | payer BC ==
[2024-08-18 15:46] VITALS: BMI 34.0
[~2024-08-22 06:15] MED LIST changes: +HEPARIN SODIUM,PORCINE 5,000 UNIT/ML 1 ML VIAL SQ PRN; +LIDOCAINE 1% (10MG/ML) FOR IV START INTRADERMA PRN; +Pre Op ABX Message 1 EACH MISC MISCELLANE ONE; -cefTRIAXone 250 MG VIAL IM ONE
[2024-08-22] MEDS: IV FLUID CONTINUATION 1,000 ML IV ONE (06:42)
[2024-08-22] MEDS: LACTATED RINGERS 1,000 ML IV SCH (07:01)
[2024-08-22] MEDS: ACETAMINOPHEN TAB 500 MG TAB PO PRN (07:02)
[2024-08-22] MEDS: ONDANSETRON 4 MG/2 ML VIAL IVP ONE (07:12)
[2024-08-22] MEDS ORDERED: fentaNYL (PF) 50 MCG/ML 2 ML AMP ONE (07:24)
[2024-08-22] MEDS ORDERED: ROCURONIUM 10 MG/ML (5 ML VIAL) IV ONE (07:24)
[2024-08-22] MEDS ORDERED: SUCCINYLCHOLINE CHLORIDE 200 MG/10 ML VIAL IV ONE (07:24)
[2024-08-22] MEDS ORDERED: PROPOFOL 10 MG/ML 20 ML VIAL IV ONE (07:24)
[2024-08-22] MEDS ORDERED: ceFAZolin 1 GM/50 ML BAG (PMX) ONE (07:24)
[2024-08-22] MEDS ORDERED: LIDOCAINE 1% INJ 10MG/ML (20 ML MDV) ONE (07:24)
[2024-08-22] MEDS: SODIUM CHLORIDE 0.9% 50 ML with ceFAZolin 2,000 MG IV ONE (07:29)
[2024-08-22] MEDS: BACITRACIN ZINC 500 UNIT/GM OINT 28.4 GM TUBE TOPICAL ONE (08:00)
[2024-08-22] MEDS: BUPIVACAINE (PF) 0.25% 30 ML VIAL SQ ONE (08:00)
[2024-08-22 08:22] VITALS: TEMP 97
[2024-08-22] MEDS ORDERED: NALOXONE 0.4 MG/ML 1 ML VIAL IV PRN (08:28)
[2024-08-22] MEDS ORDERED: ACETAMINOPHEN TAB 325 MG TAB PO PRN (08:28)
--- NOTE | 2024-08-22 08:34 | P.OP ---
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 She was placed under general anesthesia per anesthesia given her aspiration risk. The decision took place after discussion with the patient with the anesthesia team. Left breast was prepped and draped sterilely. An elliptical incision was made extending just medial to the 9:00 fistulous opening. The skin was indurated with very slight erythema noted. Elliptical incision was carried to the nipple itself where with compression a small amount of purulent drainage was noted from the nipple at the 9:00 location. Dissection through the subcutaneous tissues took place using both sharp and electrocautery. I did use a fistula probe to ensure that we were removing the entirety of this fistula. Specimen was then sent to pathology. Area was irrigated with saline. Area was infiltrated with quarter percent Marcaine solution plain. A single 3-0 Vicryl stitch was used to reapproximate the subcutaneous layer. Following that 3 simple 5-0 nylon sutures were placed to reapproximate the skin. Bacitracin and sterile dressings were applied. DISPOSITION: Stable to recovery room
[2024-08-22] MEDS: HYDROcodone/APAP 5-325MG 1 EACH TAB PO PRN (09:03)
[2024-08-22 09:25] VITALS: BP 105/64; PULSE 80; RESP 16
== END 2024-08-22 09:41 | disposition home or self-care (01) ==
LOC: OR 06:15
PROVIDERS: ATTEND Surgery
DX: N63.42 Unspecified lump in left breast, subareolar (principal)
CPT/HCPCS: 88305; 19112; J0330; J2405; J0690 ×2; J2003; J3010; J2704; J0665

== ENCOUNTER 2024-12-08 15:44 | Outpatient (CLI) | payer BC ==
[2024-12-08 16:55] VITALS: BP 117/66; PULSE 90; RESP 16; TEMP 98.4
--- NOTE | 2025-02-13 10:53 | P.MSEPDOC ---
Presenting Problems - Arrival Data Date of Arrival on Unit: 12/08/24 Time of Arrival on Unit: 15:44 Mode of Transport: Ambulatory - Complaint OB-Reason for Admission/Chief Complaint: Decreased Movement Medical History - Information : 4 Para: 1 Term: 1 : 0 Abortions: Spontaneous or Elective: 2 Number of Living Children: 1 - Gestational Age Gestational Age by NIDHI (wks/days): 32 Weeks and 0 Days Review of Systems - Review of Systems Constitutional: No problems Breast: No problems ENT: No problems Cardiovascular: No problems Respiratory: No problems Gastrointestinal: No problems Genitourinary: No problems Musculoskeletal: No problems Neurological: No problems Skin: No problems Vital Signs - Temperature Temperature: 98.4 F Temperature Source: Oral - Pulse Right Pulse Rate: 90 Pulse Assessment Method: Automatic Cuff - Respirations Respiratory Rate: 16 Oxygen Delivery Method: Room Air O2 Sat by Pulse Oximetry: 98 - Blood Pressure Right Arm Blood Pressure: 117/66 Blood Pressure Mean: 83 Blood Pressure Source: Automatic Cuff Medical Screen Scoring - Assessment - Baby A Baseline FHR: 120 Heart Rate - NICHD Category: Category I (Normal) NST: Reactive Physician Notification - Physician Notified Physician Notified Date: 12/08/24 Physician Notified Time: 16:28 Physician: Mary Cm New Order Received: Yes (discharge) Maternal Triage Index - Maternal Triage Index Presenting for scheduled procedure w/no complaint: No - Stat/Priority 1 Stat Priority 1: No - Urgent/Priority 2 Urgent Priority 2: Yes Provider Notified: Mary Cm Provider Notified Time: 16:28 Criteria Met for Priority 2: Reactive NST Disposition - Disposition OB Disposition: Discharge to home Discharge Date: 12/08/24 Discharge Time: 16:39 I agree with the RN Medical Screening Exam: Yes Case reviewed; plan agreed upon as documented in EMR&OBIX.: Yes Diagnosis: DECREASED MOVEMENTS, SECOND TRIMESTER, FETUS 1
== END 2024-12-08 16:40 | disposition home or self-care (01) ==
LOC: FBPOP 15:44
PROVIDERS: ATTEND Obstetrics & Gynecology
DX: Z53.9 Procedure and treatment not carried out, unspecified reason (principal)
CPT/HCPCS: 59025; 99213